=== PATIENT | male | born 1950 | race Caucasian/White ===

== ENCOUNTER 2019-10-24 15:47 | Emergency (ER) | payer OTHER, SELFPAY ==
[2019-10-24 16:07] VITALS: BP 178/105; PULSE 80; RESP 14; TEMP 36.2; O2SAT 97; BMI 26.6
--- NOTE | 2019-10-24 16:10 | XR_ITS ---
WS: [id number] RIGHT FOOT: 3 VIEW(S) TECHNIQUE: AP, oblique and lateral. HISTORY: INJURY COMPARISON: None available. Acute comminuted nondisplaced fracture involving the distal phalanx of the first toe. Fracture does n ot definitely extend to the articular surface. No displacement. Normal tarsal/metatarsal alignment. Moderate soft tissue swelling around the distal first toe. Degenerative arthritic changes with subchondral cystic change and osteophytes at the first metatarsal head. Vascular atherosclerosis. XR/XR foot RT min 3V* [id number] IMPRESSION: Nondisplaced fracture distal phalanx first toe.
--- NOTE | 2019-10-24 17:02 | W.ED.EXTPRO ---
HPI - Extremity Problem General: Chief complaint: Extremity Injury, Lower Stated complaint: foot pain Time Seen by Provider: 10/24/19 17:02 History of Present Illness: HPI Narrative: Patient accidentally dropped a 75 pound steel bar on the distal medial aspect of his right foot. He has discoloration pain and swelling to the first and second toes and distal foot in that area. MD Complaint: extremity pain and extremity swelling Onset (ago): day(s) (1) Pain Consistency: constant Location: right and toe (first and second toes) Quality: aching, dull and constant Radiation: proximal Relieving factors: nothing Exacerbating factors: range of motion, weight bearing, walking and palpation Associated symptoms: Reports no associated symptoms Review of Systems General: Reports: 10 or more systems reviewed and unremarkable except in HPI and below PFSH ED PFSH: Social History Smoking and tobacco status: never smoked Physical Exam Extremity: NARRATIVE EXTREMITY EXAM: On the medial aspect, the foot and great toe are swollen with a large amount of bruising consistent with acute fracture. Course Vital Signs: Vital signs: Vital Signs Temperature 97.1 F L 10/24/19 16:07 Pulse Rate 80 10/24/19 16:07 Respiratory Rate 14 10/24/19 16:07 Blood Pressure 178/105 10/24/19 16:07 Pulse Oximetry 97 10/24/19 16:07 MDM - Extremity (Nontraumatic) Imaging Data^: Xray Ortho: My impression: Comminuted displaced fracture of the distal first metatarsal Discharge Plan Discharge Condition: Good Prescriptions: No Action aspirin 325 mg Tablet 325 mg PO PRN RF: 0 Coding Level of Care Code ED [employer] for Gemini Aguirre
[2019-10-24 18:36] VITALS: BP 147/68; PULSE 88; RESP 16; O2SAT 99
== END 2019-10-24 18:45 | disposition home or self-care (01) ==
PROVIDERS: Emergency Provider Family Medicine
DX: S92.311A Displaced fracture of first metatarsal bone, right foot, initial encounter for closed fracture (principal); W20.8XXA Other cause of strike by thrown, projected or falling object, initial encounter
CPT/HCPCS: 12345; 73630; 99281; 99282; 99283; E0114

== ENCOUNTER → 2020-02-20 15:26 | Outpatient (BNVA) | payer OTHER, SELFPAY | PROVIDERS: Visit Provider Nurse Practitioner | DX: Z11.59 Encounter for screening for other viral diseases (principal) | CPT/HCPCS: 87635 ==